=== PATIENT | male | born 1990 | race Two or more races ===

== ENCOUNTER 2024-08-21 08:11 | Inpatient (IN) | payer MEDICAID ==
[~2024-08-21] VITALS: Ht 185.4 cm; Wt 133.6 kg
[2024-08-21 08:22] VITALS: PULSE 76; RESP 20; O2SAT 100
--- NOTE | 2024-08-21 08:50 | ED.PDOC ---
GI ASSESSMENT HPI Comments 34-year-old male with no reported PMHx presents with a chief complaint of abdominal pain x onset 0400 with associated nausea and vomiting. Patient states that his pain is localized to his epigastric region, nonradiating, describes as cramping, and rates his pain a 10/10. Patient mentions that onset of abdomen pain began spontaneously at 0400 while he was sleeping. Patient mentions that his emesis is bilious and acidic. No other symptoms or modifying factors present at this time. Chief Complaint: Abdominal Pain Time Seen by MD: 08:34 Primary Care Provider: CHARLIE Pat Notes: Medications, Allergies Allergies: Coded Allergies: NO KNOWN ALLERGIES (Unverified , 12/16/14) Information Source: Patient Mode of Arrival: Ambulatory Timing: Hours Duration: Since onset Prehospital treatment: None Quality: Cramping Vomitus: Bilious Stool: Normal Severity: Moderate Recent: None Recent Hx of: None Pain Location: Epigastric Modifying Factors: Nothing Associated sign and symptoms: Nausea, Vomiting, Abdominal Pain Past Medical History PAST MEDICAL HISTORY: Denies Surgical History: Denies all surgeries Family History Family History: Unknown Social History Smoker: Non-Smoker Alcohol: Denies ETOH Use Drugs: Marijuana Lives In: Home Constitutional: denies: chills, diaphoresis, fatigue, fever, malaise, sweats, weakness, others EENTM: denies: blurred vision, double vision, ear bleeding, ear discharge, ear drainage, ear pain, ear ringing, eye pain, eye redness, hearing loss, mouth pain, mouth swelling, nasal discharge, nose bleeding, nose congestion, nose pain, photophobia, tearing, throat pain, throat swelling, voice changes, others Respiratory: denies: cough, hemoptysis, orthopnea, SOB at rest, shortness of breath, SOB with excertion, stridor, wheezing, others Cardiovascular: denies: chest pain, dizzy spells, diaphoresis, Dyspnea on exertion, edema, irregular heart beat, left arm pain, lightheadedness, palpitations, PND, syncope, others Gastrointestinal: reports: abdominal pain, nausea, vomiting; denies: abdomen distended, blood streaked bowels, constipated, diarrhea, dysphagia, difficulty swallowing, hematemesis, melena, poor appetite, poor fluid intake, rectal bleeding, rectal pain, others Genitourinary: denies: burning, dysuria, flank pain, frequency, hematuria, incontinence, penile discharge, penile sore, pain, testicle pain, testicle swelling, urgency, others Neurological: denies: dizziness, fainting, headache, left sided numbness, left sided weakness, numbness, paresthesia, pre-existing deficit, right sided numbness, right sided weakness, seizure, speech problems, tingling, tremors, weakness, others Musculoskeletal: denies: back pain, gout, joint pain, joint swelling, muscle pain, muscle stiffness, neck pain, others Integumetry: denies: bruises, change in color, change in hair/nails, dryness, laceration, lesions, lumps, rash, wounds, others Allergic/Immunocompromised: denies: Difficulty Healing, Frequent Infections, Hives, Itching, others Hematologic/Lymphatic: denies: anemia, blood clots, easy bleeding, easy bruising, swollen glands, others Endocrine: denies: excessive hunger, excessive sweating, excessive thirst, excessive urination, flushing, intolerance to cold, intolerance to heat, unexplained weight gain, unexplained weight loss, others Psychiatric: denies: anxiety, bipolar disorder, depression, hopeless, panic disorder, schizophrenia, sleepless, suicidal, others All Other Systems: Reviewed and Negative Physical Exam General Appearance: Moderate Distress, Obese HEENT: Normal ENT Inspection, Pharynx Normal, TMs Normal Neck: Full Range of Motion, Non-Tender, Normal, Normal Inspection Respiratory: Chest Non-Tender, Lungs Clear, No Accessory Muscle Use, No Respiratory Distress, Normal Breath Sounds Cardiovascular: No Edema, No JVD, No Murmur, No Gallop, Normal Peripheral Pulses, Regular Rate/Rhythm Breast Exam: Deferred Gastrointestinal: No Organomegaly, Non Tender, No Pulsatile Mass, Normal Bowel Sounds, Soft Genitalia: Deferred Pelvic: Deferred Rectal: Deferred Extremities: No calf tenderness, Normal capillary refill, Normal inspection, Normal range of motion, Non-tender, No pedal edema Musculoskeletal : Apperance: Normal 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 Was a procedure done?: No GI differential Dx Differential Diagnosis: Constipation, Diverticular disease, Esophagitis, Gastritis/PUD, Gastroenteritis X-Ray, Labs, Meds, VS Vital Signs Date Time Temp Pulse Resp B/P (MAP) Pulse Ox O2 Delivery O2 Flow Rate FiO2 08/21/24 08:22 76 20 100 Room Air* 0 21 08/21/24 08:21 98.1 76 20 172/117 (135) 100 98.1 08/21/24 08:20 98.0 72 24 164/98 (120) 100 Patient alert. Complaining of abdominal pain. Vitals stable. Answering questions. Establish intravenous access. Was given fluids. Was given morphine. Was given Zofran. His blood pressure is elevated. Possibly from pain. Explained to the patient. Continue to monitor. Time of 1ST Reevaluation: 09:04 Reevaluation 1ST: Unchanged Patient Education/Counseling: Diagnosis, Treatment, Prognosis Family Education/Counseling: Diagnosis, Treatment, Prognosis Departure 1 Departure Time of Disposition: 08:55 Impression: Primary Impression: Acute abdominal pain Additional Impression: Hypertensive urgency Disposition: ADMITTED INPATIENT Admit to: Med Surg Condition: Guarded Critical Care Note Critical Care Time?: Yes (45 min-critical care time only) Critical care comment: Blood pressure elevated. Stability Stability form required: No Heart Score Heart Score: Heart Score Response (Comments) Value History N/A 0 EKG N/A 0 Age N/A 0 Risk Factors N/A 0 Troponin N/A 0 Total 0 I personally scribed for ARNIE DANGELO MD ([email or web address]) on 08/21/24 at 08:50. Electronically submitted by Sly Dubose ([email or web address]). ARNIE DANGELO MD Aug 21, 2024 08:50
[2024-08-21] MEDS: SODIUM CHLORIDE 0.9% 1,000 ML IV ONE (08:58)
[2024-08-21] MEDS: ONDANSETRON HCL 4 MG/2 ML VIAL IV ONE (09:03)
[2024-08-21] MEDS: MORPHINE SULFATE 4 MG/ML SYR/VIAL IV ONE (09:04)
[2024-08-21 09:25] LABS: Basophils # (auto) 0 10 ^3/uL (0-0.2); Basophils % (auto) 0.4 % (0.0-2.0); Eosinophils # (auto) 0.1 10 ^3/uL (0-0.8); Eosinophils % (auto) 0.7 % (0.0-7.0); Hematocrit 50.1 % (41.0-53.0); Hemoglobin 16.7 g/dL (13.5-17.5); Lymphocytes # (auto) 1.4 10 ^3/uL (0.4-5.4); Lymphocytes % (auto) 14.1 % (10.0-50.0); Mean Corpuscular Hemoglobin 29.5 pg (28.0-32.0); Mean Corpuscular Hgb Conc. 33.4 g/dL (32.0-36.0); Mean Corpuscular Volume 88.2 fL (80.0-100.0); Monocytes # (auto) 0.5 10 ^3/uL (0-1.3); Monocytes % (auto) 4.9 % (0.0-12.0); Neutrophils % (auto) 79.9 % (37.0-80.0); Nucleated Red Blood Cells % 0.1 %; Platelet Count (auto) 286 10^3/uL (140-450); Red Blood Cells 5.68 10^6/uL (4.5-5.90); Red Cell Distribution Width 12.8 % (11.8-14.3)
[2024-08-21 09:34] LABS: Chloride 104 mmol/L (98-107); Potassium 3.7 mmol/L (3.5-5.1); Sodium 139 mmol/L (136-145)
[2024-08-21 09:35] LABS: Anion Gap 10 (5-15); Calcium 9.7 mg/dL (8.7-10.4); Carbon Dioxide 25 mmol/L (20-31)
[2024-08-21 09:40] LABS: BUN/Creatinine Ratio 10.7 (10.0-20.0); Blood Urea Nitrogen 11 mg/dL (9-23)
[2024-08-21 09:42] LABS: Bilirubin, Total 0.5 mg/dL (0.2-1.0)
[2024-08-21 09:44] LABS: Glucose 135 mg/dL (74-106)
[2024-08-21] MEDS ORDERED: ONDANSETRON HCL 4 MG/2 ML VIAL IV PRN (09:45)
[2024-08-21] MEDS: KETOROLAC TROMETH 30 MG/ML 1ML VIAL IV ONE (10:03)
--- NOTE | 2024-08-21 10:04 | DVHHP2 ---
History of Present Illness Reason for Visit: Abdominal pain History of Present Illness Juancho Santa is a 34-year-old male with no past medical history who presents to the ED with epigastric abdominal pain x2 2 days. Patient reports that the pain is 10/10 nonradiating feels like it is "blowing up" and intermittent nature. Patient also complains of nausea and vomiting with yellowish contents. Patient reports that he takes sildenafil once and that was it. He also reports that he smokes marijuana, does not smoke cigarettes, denies ETOH use. Patient denies chest pain, shortness of breath, fever, chills, recent ingestion of spoiled food, trauma or recent injury, diarrhea, lightheadedness, and weakness. Past Surgical History: None Family History: None Smoke: No ALCOHOL: none Drugs: Marijuana Lives: with Family Domestic Violence: Neg Review of Systems Constitutional: No: Fever, Chills, Sweats, Weakness, Malaise, Other Eyes: No: Pain, Vision change, Conjunctivae inflammation, Eyelid inflammation, Other, Redness ENT: No: Ear pain, Ear discharge, Nose pain, Nose discharge, Nose congestion, Mouth pain, Mouth swelling, Throat pain, Throat swelling, Other Respiratory: No: Cough, Dry, Shortness of breath, SOB with excertion, Wheezing, Hemoptysis, Pleuritic Pain, Sputum, Wheezing, Other Cardiovascular: No: Chest Pain, Palpitations, Orthopnea, Paroxysmal Noc. Dyspnea, Edema, Lt Headedness, Other Gastrointestinal: Nausea, Vomiting, Abdominal Pain; No: Diarrhea, Constipation, Melena, Hematochezia, Other Genitourinary: No Dysuria, No Frequency, No Incontinence, No Hematuria, No Retention, No Other Musculoskeletal: No: other, neck pain, shoulder pain, arm pain, back pain, hand pain, leg pain, foot pain Skin: No: Rash, Lesions, Jaundice, Bruising, Other Neurological: No: Weakness, Numbness, Incoordination, Change in speech, Confusion, Seizures, Other Allergies: Coded Allergies: NO KNOWN ALLERGIES (Unverified , 12/16/14) Exam Vital Signs Vital Signs Date Time Temp Pulse Resp B/P (MAP) Pulse Ox O2 Delivery O2 Flow Rate FiO2 08/21/24 09:25 63 18 189/93 08/21/24 08:22 100 Room Air* 0 21 08/21/24 08:21 98.1 98.1 General Appearance: Alert, Oriented X3, Cooperative, mild distress HEENT: Atraumatic, PERRLA, EOMI, Mucous membr. moist/pink Respiratory: Clear to auscultation, Normal air movement Cardiovascular: Normal S1, Normal S2, No murmurs Abdominal: Soft, No hepatospenomegaly, No masses Extremities: No clubbing, No cyanosis, No edema, Normal pulses, No tenderness/swelling Skin: No rashes, No breakdown, No significant lesion Neuro: Normal gait, Normal speech, Strength at 5/5 X4 ext, Normal tone, Sensation intact Psych/Mental Status: Mental status NL, Mood NL Labs/Xrays Labs Test 08/21/24 09:14 Range/Units White Blood Count 10.0 4.4-10.8 10^3/uL Red Blood Count 5.68 4.5-5.90 10^6/uL Hemoglobin 16.7 13.5-17.5 g/dL Hematocrit 50.1 41.0-53.0 % Mean Corpuscular Volume 88.2 80.0-100.0 fL Mean Corpuscular Hemoglobin 29.5 28.0-32.0 pg Mean Corpuscular Hemoglobin Concent 33.4 32.0-36.0 g/dL Red Cell Distribution Width 12.8 11.8-14.3 % Platelet Count 286 140-450 10^3/uL Mean Platelet Volume 8.3 6.9-10.8 fL Neutrophils (%) (Auto) 79.9 37.0-80.0 % Lymphocytes (%) (Auto) 14.1 10.0-50.0 % Monocytes (%) (Auto) 4.9 0.0-12.0 % Eosinophils (%) (Auto) 0.7 0.0-7.0 % Basophils (%) (Auto) 0.4 0.0-2.0 % Neutrophils # (Auto) 8.0 1.6-8.6 10 ^3/uL Lymphocytes # (Auto) 1.4 0.4-5.4 10 ^3/uL Monocytes # (Auto) 0.5 0-1.3 10 ^3/uL Eosinophils # (Auto) 0.1 0-0.8 10 ^3/uL Basophils # (Auto) 0 0-0.2 10 ^3/uL Nucleated Red Blood Cells 0.1 % Sodium Level 139 136-145 mmol/L Potassium Level 3.7 3.5-5.1 mmol/L Chloride Level 104 98-107 mmol/L Carbon Dioxide Level 25 20-31 mmol/L Anion Gap 10 5-15 Blood Urea Nitrogen 11 9-23 mg/dL Creatinine 1.03 0.700-1.30 mg/dL Glomerular Filtration Rate Calc 98 >90 mL/min BUN/Creatinine Ratio 10.7 10.0-20.0 Serum Glucose 135 H 74-106 mg/dL Calcium Level 9.7 8.7-10.4 mg/dL Total Bilirubin 0.5 0.2-1.0 mg/dL Exam: CT CT AB PEL WO CON-NO ORAL OR IV History: stone Comparison Study: None Technique: Multidetector spiral CT of the abdomen and pelvis was performed from lung bases to pubic symphysis. Imaging was performed without IV contrast. Axial, coronal and sagittal multiplanar reformats were obtained from the axial data set by the technologist. Radiation dose : Abdomen/Pelvis: CTDIvol 26.72 mGy, DLP 1669.68 mGy*cm. Findings: Evaluation of solid organs is limited due to lack of intravenous contrast use. Lung Bases: No acute or significant lung base finding. Normal heart size. No pleural or pericardial effusion. Liver: The liver is normal in size. No focal lesions. Gallbladder and biliary Tree: Unremarkable Spleen: Unremarkable Pancreas: The pancreas is grossly normal in appearance. Adrenal Glands: Unremarkable Kidneys: Kidneys are grossly normal without calculi or hydronephrosis. Bladder: Grossly unremarkable for degree of distention. Bowel: The stomach is grossly normal in appearance. Small bowel and colon are normal in caliber and distribution. Normal appendix is visualized in the right lower quadrant without findings of appendicitis. Ascites: Absent Lymphadenopathy: No mesenteric, retroperitoneal or periportal lymphadenopathy. Abdominal wall and Mesentery: Unremarkable. Vasculature: The visualized abdominal aorta is normal in size and caliber. Evaluation of abdominal and pelvic vessels is limited due to lack of intravenous contrast. Pelvic Organs: Small amount of fluid in the left inguinal canal. Musculoskeletal: No aggressive focal bony lesions, acute fractures or dislocation. IMPRESSION: 1. No acute abdominal or pelvic findings. No hydronephrosis or nephrolithiasis. Small amount of fluid in the left inguinal canal. Consider scrotal ultrasound. ULTRASOUND OF SCROTUM AND CONTENTS. INDICATION: pain COMPARISON: None TECHNIQUE: Multiple real-time grayscale sonographic and color and duplex Doppler images of the scrotum and its contents were obtained. FINDINGS: The right testicle measures 2.8 x 2.0 x 3.9 cm. The left testicle measures 3.3 x 1.9 x 3.0 cm. Both testicles demonstrate homogeneous echotexture without evidence of focal lesions. The right epididymal head measures 0.9 cm. The left epididymal head measures 1.2 cm. There is a left epididymal cyst measuring 0.7 cm. Subsequent color and duplex Doppler interrogation of the testes demonstrated symmetric normal vascular flow to both testicles. No focal areas of hyperemia were seen. Prominent fat is visualized in the region of palpable abnormality in the soft tissues of the right testicle measuring 3.7 cm. IMPRESSION: 1. No evidence of torsion, epididymitis, and/or orchitis. Prominent fat is visualized in the region of palpable abnormality in the soft tissues of the right testicle measuring 3.7 cm. Assessment/Plan Assessment/Plan Assessment/Plan: Intractable abdominal pain with nausea and vomiting Small amount of fluid in the left inguinal canal r/o hydrocele scrotal US Labs UA NS 1 L given ED Antiemetics Pain management T bili UA CT abdomen and pelvis Lipase UDS ETOH A.m. labs STI workup (Chlamydia/GC, HIV, RPR) IV Abx- Ceftriaxone + Doxycycline Substance abuse Counseled patient on cessation of substance abuse Obesity Counseled patient on lifestyle modifications, diet, and exercise FEN/PPX NPO IV fluids DVT prophylaxis not indicated patient ambulating PUD prophylaxis -Protonix Admit to med surg Patient states he doesn't take any home medications Discussed plan of care with patient and nurse Plan discussed with: Patient My Orders Orders - [facility] [employer] Procedure Category Date Status Time Ct Ab Pel Wo Con-No CT 08/21/24 Transmitted Oral Or Iv 09:43 Admit ADMIT 08/21/24 Verified 09:43 Allergies TRACI 08/21/24 Verified 09:43 Code Status CODE 08/21/24 Verified 09:43 0.9% Ns 1000 Ml PHA 08/21/24 Verified 09:45 Hydrocodone-Acet PHA 08/21/24 Verified 5/325mg Tab ([place] 09:45 Ondansetron Hcl PHA 08/21/24 Verified (Zofran) 09:45 Complete Blood Count LAB 08/22/24 Verified 04:00 Comprehensive LAB 08/22/24 Verified Metabolic Panel 04:00 Npo (Nothing By DIET 08/21/24 Verified Mouth) Diet Lunch Acetaminophen Tablet PHA 08/21/24 Verified (Tylenol Tablet) 09:45 Morphine Sulfate PHA 08/21/24 Verified Injection 09:45 Date of Service: Aug 21, 2024 Billing Provider: XU PUGH Common Visit Codes: [id number] INP/OBS CARE (HIGH) XU PUGH Aug 21, 2024 10:04
[2024-08-21 10:47] LABS: Blood Alcohol < 3.0 mg/dL (<10)
--- NOTE | 2024-08-21 11:03 | DVH ---
Exam: CT CT AB PEL WO CON-NO ORAL OR IV History: stone Comparison Study: None Technique: Multidetector spiral CT of the abdomen and pelvis was performed from lung bases to pubic symphysis. Imaging was performed without IV contrast. Axial, coronal and sagittal multiplanar reform ats were obtained from the axial data set by the technologist. Radiation dose : Abdomen/Pelvis: CTDIvol 26.72 mGy, DLP 1669.68 mGy*cm. Findings: Evaluation of solid organs is limited due to lack of intravenous contrast use. Lung Bases: No acute or significant lung base finding. Normal heart size. No pleural or pericardial effusion. Liver: The liver is normal in size. No focal lesions. Gallbladder and biliary Tree: Unremarkable Spleen: Unremarkable Pancreas: The pancreas is grossly normal in appearance. Adrenal Glands: Unremarkable Kidneys: Kidneys are grossly normal without calculi or hydronephrosis. Bladder: Grossly unremarkable for degree of distention. Bowel: The stomach is grossly normal in appearance. Small bowel and colon are normal in caliber and d istribution. Normal appendix is visualized in the right lower quadrant without findings of appendicit is. Ascites: Absent Lymphadenopathy: No mesenteric, retroperitoneal or periportal lymphadenopathy. Abdominal wall and Mesentery: Unremarkable. Vasculature: The visualized abdominal aorta is normal in size and caliber. Evaluation of abdominal a nd pelvic vessels is limited due to lack of intravenous contrast. Pelvic Organs: Small amount of fluid in the left inguinal canal. Musculoskeletal: No aggressive focal bony lesions, acute fractures or dislocation. IMPRESSION: 1. No acute abdominal or pelvic findings. No hydronephrosis or nephrolithiasis. Small amount of flui d in the left inguinal canal. Consider scrotal ultrasound. Radiation optimization: All CT scans at this facility use at least one of these dose optimization swetha hniques: Automated exposure control mA and/or kV adjustment per patient size (includes targeted exams where dose is matched to clinical indication) or iterative reconstruction. HS:Y
[2024-08-21 11:13] LABS: Lipase 37 U/L (12-53)
[2024-08-21] MEDS: SODIUM CHLORIDE 0.9% 1,000 ML IV SCH (11:17)
[2024-08-21] MEDS: cefTRIAXone 1GM/50ML D5W 50 ML IV ONE (12:00)
[2024-08-21 12:31] LABS: Urine Bacteria None Seen /hpf (None Seen)
[2024-08-21 12:53] LABS: Urine Amorphous Crystal FEW /hpf (None Seen); Urine Blood Negative /uL (Negative); Urine Clarity Turbid (Clear); Urine Color Yellow (Yellow); Urine Mucus FEW (None Seen); Urine Protein, UAD TRACE (Negative); Urine Specific Gravity 1.031 (1.001-1.035); Urine Squamous Epithelial Cell FEW /hpf (<5); Urine Urobilinogen Normal (Negative); Urine WBC < 1 /HPF (0-3)
[2024-08-21 13:03] LABS: Cocaine Screen, Urine Neg (NEGATIVE)
[2024-08-21 13:05] LABS: Amphetamine Screen, Urine Neg (NEGATIVE); Barbiturate Scree,Urine Neg (NEGATIVE); Benzodiazephine Screen, Urine Neg (NEGATIVE); Cannabinoid Screen, Urine Pos (NEGATIVE); Opiate Scree,Urine Pos (NEGATIVE); Phencyclidine Screen, Urine Neg (NEGATIVE)
--- NOTE | 2024-08-21 13:06 | DVH ---
ULTRASOUND OF SCROTUM AND CONTENTS. INDICATION: pain COMPARISON: None TECHNIQUE: Multiple real-time grayscale sonographic and color and duplex Doppler images of the scrotu m and its contents were obtained. FINDINGS: The right testicle measures 2.8 x 2.0 x 3.9 cm. The left testicle measures 3.3 x 1.9 x 3.0 cm. Both testicles demonstrate homogeneous echotexture without evidence of focal lesions. The right epididymal head measures 0.9 cm. The left epididymal head measures 1.2 cm. There is a left epididymal cyst measuring 0.7 cm. Subsequent color and duplex Doppler interrogation of the testes demonstrated symmetric normal vascula r flow to both testicles. No focal areas of hyperemia were seen. Prominent fat is visualized in the region of palpable abnormality in the soft tissues of the right te sticle measuring 3.7 cm. IMPRESSION: 1. No evidence of torsion, epididymitis, and/or orchitis. Prominent fat is visualized in the region o f palpable abnormality in the soft tissues of the right testicle measuring 3.7 cm.
[2024-08-21] MEDS: DOXYCYCLINE 100MG/100ML 100 ML IV ONE (13:15)
[2024-08-21 21:30] VITALS: BP 149/74; PULSE 95; RESP 18; TEMP 98.5; O2SAT 97
[2024-08-21 22:40] VITALS: BP 149/74; PULSE 95; RESP 18; TEMP 98.5; O2SAT 97
[2024-08-21] MEDS: DOXYCYCLINE 100MG/100ML 100 ML IV SCH (23:51)
[2024-08-22] VITALS (9 sets, daily range): BP systolic 122–158; BP diastolic 71–85; PULSE 79–90; RESP 18–20; TEMP 98.3–101; O2SAT 94–98
[2024-08-22] MEDS: HYDROcodone-ACET 5/325MG TAB PO PRN (01:02)
[2024-08-22 03:51] LABS: Basophils # (auto) 0.1 10 ^3/uL (0-0.2); Basophils % (auto) 0.4 % (0.0-2.0); Eosinophils # (auto) 0.1 10 ^3/uL (0-0.8); Eosinophils % (auto) 0.4 % (0.0-7.0); Hematocrit 46.4 % (41.0-53.0); Hemoglobin 15.5 g/dL (13.5-17.5); Lymphocytes # (auto) 2.2 10 ^3/uL (0.4-5.4); Lymphocytes % (auto) 16.1 % (10.0-50.0); Mean Corpuscular Hemoglobin 29.4 pg (28.0-32.0); Mean Corpuscular Hgb Conc. 33.4 g/dL (32.0-36.0); Mean Corpuscular Volume 88.1 fL (80.0-100.0); Monocytes # (auto) 1.4 10 ^3/uL (0-1.3); Monocytes % (auto) 10.4 % (0.0-12.0); Neutrophils # (auto) 9.8 10 ^3/uL (1.6-8.6); Neutrophils % (auto) 72.7 % (37.0-80.0); Nucleated Red Blood Cells % 0.1 %; Platelet Count (auto) 275 10^3/uL (140-450); Red Blood Cells 5.27 10^6/uL (4.5-5.90); Red Cell Distribution Width 12.8 % (11.8-14.3); White Blood Cell 13.4 10^3/uL (4.4-10.8)
[2024-08-22 04:19] LABS: Alanine Aminotransferase 37 U/L (7-40); Albumin 4.5 g/dL (3.2-4.8); Alkaline Phosphatase 79 U/L (46-116); Anion Gap 11 (5-15); Aspartate Aminotransferase 20 U/L (13-40); BUN/Creatinine Ratio 11.1 (10.0-20.0); Blood Urea Nitrogen 12 mg/dL (9-23); Calcium 9.2 mg/dL (8.7-10.4); Carbon Dioxide 23 mmol/L (20-31); Chloride 103 mmol/L (98-107); Potassium 3.7 mmol/L (3.5-5.1); Sodium 137 mmol/L (136-145)
[2024-08-22 04:20] LABS: Bilirubin, Total 1.1 mg/dL (0.2-1.0); Total Protein 7.1 g/dL (5.7-8.2)
[2024-08-22 04:30] LABS: Glucose 120 mg/dL (74-106)
[2024-08-22] MEDS: DOXYCYCLINE 100MG/100ML 100 ML IV SCH (04:46)
[2024-08-22] MEDS: PANTOPRAZOLE 40 MG/10 ML VIAL INJ IV SCH (08:46)
[2024-08-22] MEDS: cefTRIAXone 1GM/50ML D5W 50 ML IV SCH (08:53)
--- NOTE | 2024-08-22 14:49 | DVHPN2 ---
Subjective The patient is seen and examined at bedside. The patient complained of severe abdominal pain with nausea but no vomiting. The patient also said that his scrotum is hurting Reviewed: Care Plan, H&P, Labs, Medications, Previous Orders, Radiology Changes from previous H/P or p: No Changes Eyes: No Pain, No Vision change, No Conjunctivae inflammation, No Eyelid inflammation, No Other, No Redness ENT: No Ear pain, No Ear discharge, No Nose pain, No Nose discharge, No Nose congestion, No Mouth pain, No Mouth swelling, No Throat pain, No Throat swelling, No Other Cardiovascular: No Chest Pain, No Palpitations, No Orthopnea, No Paroxysmal Noc. Dyspnea, No Edema, No Lt Headedness, No Other Respiratory: No Cough, No Dry, No Shortness of breath, No SOB with excertion, No Wheezing, No Hemoptysis, No Pleuritic Pain, No Sputum, No Other Gastrointestinal: Nausea, Vomiting, Abdominal Pain; No Diarrhea, No Constipation, No Melena, No Hematochezia, No Other Genitourinary: No Dysuria, No Frequency, No Incontinence, No Hematuria, No Retention, No Other Musculoskeletal: No other, No neck pain, No shoulder pain, No arm pain, No back pain, No hand pain, No leg pain, No foot pain Skin: No Rash, No Lesions, No Jaundice, No Bruising, No Other Objective Vitals Vital Signs Date Time Temp Pulse Resp B/P (MAP) Pulse Ox O2 Delivery O2 Flow Rate FiO2 08/22/24 13:19 101.0 82 20 158/77 (104) 97 101.0 08/22/24 00:49 Room Air* 0 21 Intake/Output Intake and Output 08/22/24 07:00 Intake Total 2000 ml Balance 2000 ml Intake IV Total 2000 ml General Appearance: Alert, Oriented X3, Cooperative, No acute distress HEENT: Atraumatic, PERRLA, EOMI, Mucous membr. moist/pink Neck: Supple Lungs: Clear to auscultation, Normal air movement Cardiovascular: Regular rate, Normal S1, Normal S2, No murmurs, Gallops, Rubs Abdomen: Normal bowel sounds, Soft, No tenderness Genitourinary: Tenderness (Scrotum) Neuro: Cranial nerves 3-12 NL Psych/Mental Status: Mental status NL Medications Current Medications Medications Dose Ordered Sig/Graham Route Start Time Stop Time Status Last Admin Dose Admin Sodium Chloride 1,000 ml @ 100 mls/hr Q10H IV 08/21/24 09:45 08/21/24 23:50 100 MLS/HR Acetaminophen/ Hydrocodone Bitart 1 tab Q4HP PRN PO 08/21/24 09:45 08/22/24 12:56 1 TAB Ondansetron HCl 4 mg Q4HP PRN IV 08/21/24 09:45 Acetaminophen 650 mg Q6HP PRN PO 08/21/24 09:45 Morphine Sulfate 2 mg Q4HPRN PRN IV 08/21/24 09:45 Pantoprazole Sodium 40 mg DAILY IV 08/22/24 10:00 08/22/24 08:46 40 MG Ceftriaxone Sodium 50 ml @ 100 mls/hr DAILY@09 IV 08/22/24 09:00 08/22/24 08:53 100 MLS/HR Doxycycline Hyclate 100 ml @ 50 mls/hr Q12H IV 08/22/24 05:00 08/22/24 04:46 50 MLS/HR Laboratory Results Laboratory Tests 08/22/24 03:21 Chemistry Test 08/22/24 03:21 Albumin 4.5 g/dL (3.2-4.8) Calcium Level 9.2 mg/dL (8.7-10.4) Total Protein 7.1 g/dL (5.7-8.2) LFT Test 08/22/24 03:21 Alanine Aminotransferase (ALT) 37 U/L (7-40) Alkaline Phosphatase 79 U/L (46-116) Aspartate Amino Transferase (AST) 20 U/L (13-40) Total Bilirubin 1.1 mg/dL (0.2-1.0) H Urinalysis Test 08/21/24 12:30 Urine Color Yellow (Yellow) Urine Clarity Turbid (Clear) H Urine pH 7.0 (5.0-9.0) Urine Specific [place] 1.031 (1.001-1.035) Urine Protein Trace (Negative) H Urine Ketones Trace (Negative) Urine Blood Negative /uL (Negative) Urine Nitrite Negative (Negative) Urine Bilirubin Negative (Negative) Urine Urobilinogen Normal mg/dL (Negative) Urine Leukocyte Esterase Negative /uL (Negative) Urine RBC 8 /hpf (0 - 3) Urine Microscopic WBC < 1 /HPF (0-3) Urine Squamous Epithelial Cells Few /hpf (<5) Urine Amorphous Crystals Few /hpf (None Seen) Urine Bacteria None seen /hpf (None Seen) Urine Mucus Few (None Seen) Urine Glucose Normal mg/dL (Normal) Labs and/or images reviewed: Labs reviewed by me Assessment/Plan Assessment/Plan Intractable abdominal pain with nausea and vomiting Small amount of fluid in the left inguinal canal r/o hydrocele Palpable abnormality in the soft tissues of the right testicle measuring 3.7 cm. Substance abuse Obesity Continuing current management. Continuing with Protonix. Continuing with pain medication. Continuing with Zofran. Urology consulted for abnormal area in the right testis to rule out testicular cancer Advised to stop using drugs more than 15 minutes GI consulted Plan discussed with: Patient Date of Service: Aug 22, 2024 Billing Provider: YOAN JONES MD Common Visit Codes: [id number] INP/OBS CARE(HIGH) YOAN JONES MD Aug 22, 2024 14:49
[2024-08-22] MEDS: ACETAMINOPHEN 325 MG TAB PO PRN (18:18)
[2024-08-23 01:05] VITALS: BP 113/61; PULSE 81; RESP 17; TEMP 99.5; O2SAT 98
[2024-08-23 05:10] VITALS: BP 146/78; PULSE 80; RESP 18; TEMP 99.1; O2SAT 96
[2024-08-23 06:06] LABS: Chlamydia Trachomatis, NAA Negative (Negative); Neisseria gonorrhoeae, NAA Negative (Negative)
[2024-08-23] MEDS: MORPHINE SULFATE INJ 2 MG/ml SYRG IV PRN (08:16)
[2024-08-23 09:00] VITALS: BP 132/61; PULSE 91; RESP 17; TEMP 97.7; O2SAT 97
[2024-08-23 13:00] VITALS: BP 117/76; PULSE 94; RESP 16; TEMP 98.4; O2SAT 100
--- NOTE | 2024-08-23 14:35 | DVHINCON2 ---
Date of service: Aug 23, 2024 Referring Physician hospitalist Reason for Consultation testicular mass History of Present Illness History Source: Patient, RN Notes, MD Notes Exam Limitations: No limitations HPI 34 yo obese male without medical history presents for c/o of mid epigastric pain with nausea and vomiting. This has been bothering him for weeks and he states nothing has been done here to address it. CT was unremarkable for findings. Scrotal US showed a fatty 3.7 cm lesion in the right testicle however physical exam was unremarkable. He does have a fatty collection of the right inner thigh that is not new and is not bothering him. He admits to smoking marijuana and eating a poor diet including a lot of soda. Tumor markers were ordered at patients request as he has many family members with multiple types of cancers. Past Medical History Cardiac: No pertinent Hx Pulmonary: No pertinent Hx Central Nervous System: No pertinent Hx GI: No pertinent Hx Hemotology/Oncology: No pertinent Hx Hepatobiliary: No pertinent Hx Psychiatric: No pertinent Hx Musculoskeletal: No pertinent Hx Rheumotologic: No pertinent Hx Infectious Disease: No peritnent Hx ENT: No pertinent Hx Renal/: No pertinent Hx Endocrine: No pertinent Hx Dermatology: No pertinent Hx Patient Family History: Patient reports no known family medical history. Smoker: No Hx (Negative) Alocohol: None Drugs: Marijuana Domestic Violence: Neg Review of Systems Gastrointestinal: Nausea, Abdominal Pain H&P Exam Vital Signs Vital Signs Date Time Temp Pulse Resp B/P (MAP) Pulse Ox O2 Delivery O2 Flow Rate FiO2 08/23/24 09:00 97.7 91 17 132/61 (84) 97 97.7 08/23/24 07:48 Room Air* 0 21 21 General Appeara: Well developed, Well nourished, Normal Appearance, Obese Abdominal Exam: Normal bowel sounds, Soft, No tenderness, No hepatospenomegaly, No masses Rectal Exam: Deferred Back Exam: Normal inspection Male Genital Exam: Normal genitalia Neuro/Mental St: Alert, Oriented Appearance: Appropriate appearance, Appropriate insight Eye contact/ Speech: Cooperative, Good eye contact, Normal speech Skin Exam: Normal inspection, Normal color, Warm/dry Lymphatic: Normal inspection Labs/Xrays [facility] [id number] [place] [id number] Ph: [phone] DIAGNOSTIC IMAGING Diagnostic Imaging Report : [id number] Signed PATIENT: LYNN CASTRO ACCT: [id number] UNIT: [id number] : 1990 LOC: OVERFLOW ROOM / BED: 1025-ER / A AGE / SEX: 34 / M ADM STATUS: ADM IN SERVICE 0957 ORDERING PHYSICIAN: ARNIE DANGELO MD PROCEDURE(s): ABPL - CT AB PEL WO CON-NO ORAL OR IV REASON: stone ORDER NUMBER(s): [id number], ACCESSION NUMBER(s): [id number] Exam: CT CT AB PEL WO CON-NO ORAL OR IV History: stone Comparison Study: None Technique: Multidetector spiral CT of the abdomen and pelvis was performed from lung bases to pubic symphysis. Imaging was performed without IV contrast. Axial, coronal and sagittal multiplanar reformats were obtained from the axial data set by the technologist. Radiation dose : Abdomen/Pelvis: CTDIvol 26.72 mGy, DLP 1669.68 mGy*cm. Findings: Evaluation of solid organs is limited due to lack of intravenous contrast use. Lung Bases: No acute or significant lung base finding. Normal heart size. No pleural or pericardial effusion. Liver: The liver is normal in size. No focal lesions. Gallbladder and biliary Tree: Unremarkable Spleen: Unremarkable Pancreas: The pancreas is grossly normal in appearance. Adrenal Glands: Unremarkable Kidneys: Kidneys are grossly normal without calculi or hydronephrosis. Bladder: Grossly unremarkable for degree of distention. Bowel: The stomach is grossly normal in appearance. Small bowel and colon are normal in caliber and distribution. Normal appendix is visualized in the right lower quadrant without findings of appendicitis. Ascites: Absent Lymphadenopathy: No mesenteric, retroperitoneal or periportal lymphadenopathy. Abdominal wall and Mesentery: Unremarkable. Vasculature: The visualized abdominal aorta is normal in size and caliber. Evaluation of abdominal and pelvic vessels is limited due to lack of intravenous contrast. Pelvic Organs: Small amount of fluid in the left inguinal canal. Musculoskeletal: No aggressive focal bony lesions, acute fractures or dislocation. IMPRESSION: 1. No acute abdominal or pelvic findings. No hydronephrosis or nephrolithiasis. Small amount of fluid in the left inguinal canal. Consider scrotal ultrasound. Radiation optimization: All CT scans at this facility use at least one of these dose optimization techniques: Automated exposure control mA and/or kV adjustment per patient size (includes targeted exams where dose is matched to clinical indication) or iterative reconstruction. HS:Y ATED BY: TOÑITO DICKINSON MD DICTATED DATE/TIME: 08/21/24 110 SIGNED BY: TOÑITO DICKINSON MD SIGNED DATE/TIME: 08/21/24 110 CC: [place] [id number] Ph: [phone] DIAGNOSTIC IMAGING Diagnostic Imaging Report : [id number] Signed PATIENT: LYNN CASTRO ACCT: [id number] UNIT: [id number] : 1990 [facility]GE / SEX: 34 / M ADM STATUS: ADM IN SERVICE 1042 ORDERING PHYSICIAN: UX PUGH PROCEDURE(s): TESUS - TESTICULAR ULTRASOUND REASON: pain ORDER NUMBER(s): [id number], ACCESSION NUMBER(s): [id number] ULTRASOUND OF SCROTUM AND CONTENTS. INDICATION: pain COMPARISON: None TECHNIQUE: Multiple real-time grayscale sonographic and color and duplex Doppler images of the scrotum and its contents were obtained. FINDINGS: The right testicle measures 2.8 x 2.0 x 3.9 cm. The left testicle measures 3.3 x 1.9 x 3.0 cm. Both testicles demonstrate homogeneous echotexture without evidence of focal lesions. The right epididymal head measures 0.9 cm. The left epididymal head measures 1.2 cm. There is a left epididymal cyst measuring 0.7 cm. Subsequent color and duplex Doppler interrogation of the testes demonstrated symmetric normal vascular flow to both testicles. No focal areas of hyperemia were seen. Prominent fat is visualized in the region of palpable abnormality in the soft tissues of the right testicle measuring 3.7 cm. IMPRESSION: 1. No evidence of torsion, epididymitis, and/or orchitis. Prominent fat is visualized in the region of palpable abnormality in the soft tissues of the right testicle measuring 3.7 cm. ATED BY: SHAYAN BLEDSOE MD DICTATED DATE/TIME: 08/21/24 1306 SIGNED BY: SHAYAN BLEDSOE MD SIGNED DATE/TIME: 08/21/24 1306 CC: Labs Test 08/22/24 03:21 08/21/24 12:30 08/21/24 09:14 Range/Units White Blood Count 13.4 #H 4.4-10.8 10^3/uL Red Blood Count 5.27 4.5-5.90 10^6/uL Hemoglobin 15.5 13.5-17.5 g/dL Hematocrit 46.4 41.0-53.0 % Mean Corpuscular Volume 88.1 80.0-100.0 fL Mean Corpuscular Hemoglobin 29.4 28.0-32.0 pg Mean Corpuscular Hemoglobin Concent 33.4 32.0-36.0 g/dL Red Cell Distribution Width 12.8 11.8-14.3 % Platelet Count 275 140-450 10^3/uL Mean Platelet Volume 8.2 6.9-10.8 fL Neutrophils (%) (Auto) 72.7 37.0-80.0 % Lymphocytes (%) (Auto) 16.1 10.0-50.0 % Monocytes (%) (Auto) 10.4 0.0-12.0 % Eosinophils (%) (Auto) 0.4 0.0-7.0 % Basophils (%) (Auto) 0.4 0.0-2.0 % Neutrophils # (Auto) 9.8 H 1.6-8.6 10 ^3/uL Lymphocytes # (Auto) 2.2 0.4-5.4 10 ^3/uL Monocytes # (Auto) 1.4 H 0-1.3 10 ^3/uL Eosinophils # (Auto) 0.1 0-0.8 10 ^3/uL Basophils # (Auto) 0.1 0-0.2 10 ^3/uL Nucleated Red Blood Cells 0.1 % Sodium Level 137 136-145 mmol/L Potassium Level 3.7 3.5-5.1 mmol/L Chloride Level 103 98-107 mmol/L Carbon Dioxide Level 23 20-31 mmol/L Anion Gap 11 5-15 Blood Urea Nitrogen 12 9-23 mg/dL Creatinine 1.08 0.700-1.30 mg/dL Glomerular Filtration Rate Calc 92 >90 mL/min BUN/Creatinine Ratio 11.1 10.0-20.0 Serum Glucose 120 H 74-106 mg/dL Calcium Level 9.2 8.7-10.4 mg/dL Total Bilirubin 1.1 H 0.2-1.0 mg/dL Aspartate Amino Transferase (AST) 20 13-40 U/L Alanine Aminotransferase (ALT) 37 7-40 U/L Alkaline Phosphatase 79 46-116 U/L Total Protein 7.1 5.7-8.2 g/dL Albumin 4.5 3.2-4.8 g/dL Urine Color Yellow Yellow Urine Clarity Turbid H Clear Urine pH 7.0 5.0-9.0 Urine Specific [place] 1.031 1.001-1.035 Urine Protein Trace H Negative Urine Ketones Trace Negative Urine Blood Negative Negative /uL Urine Nitrite Negative Negative Urine Bilirubin Negative Negative Urine Urobilinogen Normal Negative mg/dL Urine Leukocyte Esterase Negative Negative /uL Urine RBC 8 0 - 3 /hpf Urine Microscopic WBC < 1 0-3 /HPF Urine Squamous Epithelial Cells Few <5 /hpf Urine Amorphous Crystals Few None Seen /hpf Urine Bacteria None seen None Seen /hpf Urine Mucus Few None Seen Urine Glucose Normal Normal mg/dL Urine Opiates Screen Pos NEGATIVE Urine Fentanyl Screen Neg NEGATIVE Urine Barbiturates Screen Neg NEGATIVE Urine Phencyclidine Screen Neg NEGATIVE Urine Amphetamines Screen Neg NEGATIVE Urine Benzodiazepines Screen Neg NEGATIVE Urine Cocaine Screen Neg NEGATIVE Urine Cannabinoids Screen Pos NEGATIVE Chlamydia trachomatis (SONALI) Negative Negative Neisseria gonorrhoeae (SONALI) Negative Negative Lipase 37 12-53 U/L Plasma/Serum Blood Alcohol < 3.0 <10 mg/dL HIV (1&2) Antibody Negative Negative Assessment/Plan Problem List: (1) Testicle lump (2) AOM (acute otitis media) (3) Acute abdominal pain (4) Hypertensive urgency Plan DDX: lipoma or scrotal fat herniation, inguinal hernia, testicular or paratesticular mass tumor markers AFP, beta HCG, LDH, does not need to stay for results. cleared from urology standpoint outpt follow up Plan discussed with: Patient BETO BROWNJESSENIA GU Aug 23, 2024 14:35
--- NOTE | 2024-08-23 15:50 | DVHINCON2 ---
Date of service: Aug 23, 2024 Referring Physician Tricia Reason for Consultation Abdominal pain History of Present Illness The patient is a 34-year-old male with no significant past medical history, history of marijuana use, history of GERD for which he takes [id number] medication, admitted with abdominal pain mostly in the epigastric region and right upper quadrant. Patient states that it is pain and not burning. Patient has been having acid reflux. Patient denies any prior history of admission for similar findings were workup for similar issues. She has had intermittent acid reflux for quite some time. He denies any diarrhea or constipation. Patient has had fever since admission is noted to have leukocytosis. CT scan findings show no significant abdominal or pelvic abnormalities, patient does have a possible hydrocele or testicular lump and is being worked up for this. Patient has not had any hematemesis. Patient was placed on IV antibiotics. Patient denies significant caffeine intake or alcohol abuse, he denies eating spicy food or greasy food. Past Medical History As per HPI Past Surgical History Denies Family History: Patient reports no known family medical history. Family History Denies GI family history Social History Marijuana use, no tobacco or alcohol use Allergies: Coded Allergies: NO KNOWN ALLERGIES (Unverified , 12/16/14) Home Meds Takes [id number] medications for acid Review of Systems Review of systems negative other than HPI Vital Signs Vital Signs Date Time Temp Pulse Resp B/P (MAP) Pulse Ox O2 Delivery O2 Flow Rate FiO2 08/23/24 13:00 98.4 94 16 117/76 (90) 100 98.4 08/23/24 07:48 Room Air* 0 21 21 Physical Exam General: Alert and oriented obese male lying in bed HEENT: Normocephalic atraumatic, EOMI PERRLA O/P clear Heart: Regular rate and rhythm Abdomen: Soft mild right upper quadrant tenderness to palpation no guarding or rebound tenderness Extremity: No clubbing cyanosis or edema Labs/Diagnostic Data Labs Test 08/23/24 15:10 08/22/24 03:21 08/21/24 12:30 08/21/24 09:14 Range/Units White Blood Count 13.4 #H 4.4-10.8 10^3/uL Red Blood Count 5.27 4.5-5.90 10^6/uL Hemoglobin 15.5 13.5-17.5 g/dL Hematocrit 46.4 41.0-53.0 % Mean Corpuscular Volume 88.1 80.0-100.0 fL Mean Corpuscular Hemoglobin 29.4 28.0-32.0 pg Mean Corpuscular Hemoglobin Concent 33.4 32.0-36.0 g/dL Red Cell Distribution Width 12.8 11.8-14.3 % Platelet Count 275 140-450 10^3/uL Mean Platelet Volume 8.2 6.9-10.8 fL Neutrophils (%) (Auto) 72.7 37.0-80.0 % Lymphocytes (%) (Auto) 16.1 10.0-50.0 % Monocytes (%) (Auto) 10.4 0.0-12.0 % Eosinophils (%) (Auto) 0.4 0.0-7.0 % Basophils (%) (Auto) 0.4 0.0-2.0 % Neutrophils # (Auto) 9.8 H 1.6-8.6 10 ^3/uL Lymphocytes # (Auto) 2.2 0.4-5.4 10 ^3/uL Monocytes # (Auto) 1.4 H 0-1.3 10 ^3/uL Eosinophils # (Auto) 0.1 0-0.8 10 ^3/uL Basophils # (Auto) 0.1 0-0.2 10 ^3/uL Nucleated Red Blood Cells 0.1 % Sodium Level 137 136-145 mmol/L Potassium Level 3.7 3.5-5.1 mmol/L Chloride Level 103 98-107 mmol/L Carbon Dioxide Level 23 20-31 mmol/L Anion Gap 11 5-15 Blood Urea Nitrogen 12 9-23 mg/dL Creatinine 1.08 0.700-1.30 mg/dL Glomerular Filtration Rate Calc 92 >90 mL/min BUN/Creatinine Ratio 11.1 10.0-20.0 Serum Glucose 120 H 74-106 mg/dL Calcium Level 9.2 8.7-10.4 mg/dL Total Bilirubin 1.1 H 0.2-1.0 mg/dL Aspartate Amino Transferase (AST) 20 13-40 U/L Alanine Aminotransferase (ALT) 37 7-40 U/L Alkaline Phosphatase 79 46-116 U/L Total Protein 7.1 5.7-8.2 g/dL Albumin 4.5 3.2-4.8 g/dL Urine Color Yellow Yellow Urine Clarity Turbid H Clear Urine pH 7.0 5.0-9.0 Urine Specific [place] 1.031 1.001-1.035 Urine Protein Trace H Negative Urine Ketones Trace Negative Urine Blood Negative Negative /uL Urine Nitrite Negative Negative Urine Bilirubin Negative Negative Urine Urobilinogen Normal Negative mg/dL Urine Leukocyte Esterase Negative Negative /uL Urine RBC 8 0 - 3 /hpf Urine Microscopic WBC < 1 0-3 /HPF Urine Squamous Epithelial Cells Few <5 /hpf Urine Amorphous Crystals Few None Seen /hpf Urine Bacteria None seen None Seen /hpf Urine Mucus Few None Seen Urine Glucose Normal Normal mg/dL Urine Opiates Screen Pos NEGATIVE Urine Fentanyl Screen Neg NEGATIVE Urine Barbiturates Screen Neg NEGATIVE Urine Phencyclidine Screen Neg NEGATIVE Urine Amphetamines Screen Neg NEGATIVE Urine Benzodiazepines Screen Neg NEGATIVE Urine Cocaine Screen Neg NEGATIVE Urine Cannabinoids Screen Pos NEGATIVE Chlamydia trachomatis (SONALI) Negative Negative Neisseria gonorrhoeae (SONALI) Negative Negative Lipase 37 12-53 U/L Plasma/Serum Blood Alcohol < 3.0 <10 mg/dL HIV (1&2) Antibody Negative Negative Assessment 1. Abdominal pain 2. GERD 3. Leukocytosis Findings may be due to gastroenteritis versus acalculous cholecystitis versus other Problems(with codes): (1) Acute abdominal pain (2) Hypertensive urgency (3) Testicle lump Plan/Recommendation 1. Hypertension control 2. Continue antibiotics 3. Diet as tolerated 4. Anti-reflux precautions, elevate head of bed, proton pump inhibitor daily, avoid spicy food and greasy 5. Consider EGD if symptoms persist or worsen Plan discussed with: Patient, Spouse LANI ALTMAN MD Aug 23, 2024 15:50
[2024-08-23 16:00] LABS: Beta HCG, Quantitative 0.3 mIU/mL (0-2)
[2024-08-23 16:30] VITALS: BP 109/67; PULSE 76; RESP 18; TEMP 97.8; O2SAT 94
--- NOTE | 2024-08-23 19:11 | DVHPN2 ---
Subjective The patient is seen and examined at bedside. Still complaint of abdominal pain and nausea Reviewed: Care Plan, H&P, Labs, Medications, Previous Orders, Radiology Changes from previous H/P or p: No Changes Eyes: No Pain, No Vision change, No Conjunctivae inflammation, No Eyelid inflammation, No Other, No Redness ENT: No Ear pain, No Ear discharge, No Nose pain, No Nose discharge, No Nose congestion, No Mouth pain, No Mouth swelling, No Throat pain, No Throat swelling, No Other Cardiovascular: No Chest Pain, No Palpitations, No Orthopnea, No Paroxysmal Noc. Dyspnea, No Edema, No Lt Headedness, No Other Respiratory: No Cough, No Dry, No Shortness of breath, No SOB with excertion, No Wheezing, No Hemoptysis, No Pleuritic Pain, No Sputum, No Other Gastrointestinal: Nausea, Vomiting, Abdominal Pain; No Diarrhea, No Constipation, No Melena, No Hematochezia, No Other Genitourinary: No Dysuria, No Frequency, No Incontinence, No Hematuria, No Retention, No Other Musculoskeletal: No other, No neck pain, No shoulder pain, No arm pain, No back pain, No hand pain, No leg pain, No foot pain Skin: No Rash, No Lesions, No Jaundice, No Bruising, No Other Objective Vitals Vital Signs Date Time Temp Pulse Resp B/P (MAP) Pulse Ox O2 Delivery O2 Flow Rate FiO2 08/23/24 16:30 97.8 76 18 109/67 (81) 94 97.8 08/23/24 07:48 Room Air* 0 21 21 Intake/Output Intake and Output 08/23/24 07:00 Intake Total 750 ml Balance 750 ml Intake IV Total 750 ml General Appearance: Alert, Oriented X3, Cooperative, No acute distress HEENT: Atraumatic, PERRLA, EOMI, Mucous membr. moist/pink Neck: Supple Lungs: Clear to auscultation, Normal air movement Cardiovascular: Regular rate, Normal S1, Normal S2, No murmurs, Gallops, Rubs Abdomen: Normal bowel sounds, Soft, No tenderness, No hepatospenomegaly Neuro: Cranial nerves 3-12 NL Psych/Mental Status: Mental status NL Medications Current Medications Medications Dose Ordered Sig/Graham Route Start Time Stop Time Status Last Admin Dose Admin Sodium Chloride 1,000 ml @ 100 mls/hr Q10H IV 08/21/24 09:45 08/23/24 11:45 100 MLS/HR Acetaminophen/ Hydrocodone Bitart 1 tab Q4HP PRN PO 08/21/24 09:45 08/22/24 12:56 1 TAB Ondansetron HCl 4 mg Q4HP PRN IV 08/21/24 09:45 Acetaminophen 650 mg Q6HP PRN PO 08/21/24 09:45 08/22/24 18:18 650 MG Morphine Sulfate 2 mg Q4HPRN PRN IV 08/21/24 09:45 08/23/24 08:16 2 MG Pantoprazole Sodium 40 mg DAILY IV 08/22/24 10:00 08/23/24 08:25 40 MG Ceftriaxone Sodium 50 ml @ 100 mls/hr DAILY@09 IV 08/22/24 09:00 08/23/24 08:25 100 MLS/HR Doxycycline Hyclate 100 ml @ 50 mls/hr Q12H IV 08/22/24 05:00 08/23/24 16:37 50 MLS/HR Laboratory Results Laboratory Tests 08/22/24 03:21 Urinalysis Test 08/21/24 12:30 Urine Color Yellow (Yellow) Urine Clarity Turbid (Clear) H Urine pH 7.0 (5.0-9.0) Urine Specific [place] 1.031 (1.001-1.035) Urine Protein Trace (Negative) H Urine Ketones Trace (Negative) Urine Blood Negative /uL (Negative) Urine Nitrite Negative (Negative) Urine Bilirubin Negative (Negative) Urine Urobilinogen Normal mg/dL (Negative) Urine Leukocyte Esterase Negative /uL (Negative) Urine RBC 8 /hpf (0 - 3) Urine Microscopic WBC < 1 /HPF (0-3) Urine Squamous Epithelial Cells Few /hpf (<5) Urine Amorphous Crystals Few /hpf (None Seen) Urine Bacteria None seen /hpf (None Seen) Urine Mucus Few (None Seen) Urine Glucose Normal mg/dL (Normal) Labs and/or images reviewed: Labs reviewed by me Assessment/Plan Assessment/Plan Intractable abdominal pain with nausea and vomiting Small amount of fluid in the left inguinal canal r/o hydrocele Palpable abnormality in the soft tissues of the right testicle measuring 3.7 cm. Substance abuse Obesity Continuing current management. Continuing with Protonix. Continuing with pain medication. Continuing with Zofran. Advised to stop using drugs more than 15 minutes Waiting for GI specialist to see the patient Appreciate urology input Plan discussed with: Patient My Orders Orders - YOAN JONES MD Procedure Category Date Status Time * [facility] [employer] CONS 08/23/24 Transmitted 13:07 Date of Service: Aug 23, 2024 Billing Provider: YOAN JONES MD Common Visit Codes: [id number] INP/OBS CARE(HIGH) YOAN JONES MD Aug 23, 2024 19:11
[2024-08-23 21:00] VITALS: BP 132/71; PULSE 107; RESP 18; TEMP 99.5; O2SAT 96
[2024-08-23] MEDS: MAALOX PLUS or MAALOX 30 ML PO ONE (23:56)
[2024-08-24] VITALS (7 sets, daily range): BP systolic 113–154; BP diastolic 55–102; PULSE 71–88; RESP 18–20; TEMP 98–98.8; O2SAT 95–98
[2024-08-24] MEDS: DOCUSATE SOD 100 MG CAP PO ONE (16:07)
[2024-08-24] MEDS: FAMOTIDINE (10MG/ML) 2ML VL IV ONE (16:07)
[2024-08-24] MEDS: POLYETHYLENE GLYCOL 17 GM PWDR PO ONE (16:07)
[2024-08-24 16:12] LABS: RPR Non Reactive
--- NOTE | 2024-08-24 17:25 | DVHPN2 ---
Subjective having pain in epigastric area Reviewed: Care Plan, H&P, Labs, Medications, Previous Orders, Radiology Changes from previous H/P or p: No Changes Eyes: No Pain, No Vision change, No Conjunctivae inflammation, No Eyelid inflammation, No Other, No Redness ENT: No Ear pain, No Ear discharge, No Nose pain, No Nose discharge, No Nose congestion, No Mouth pain, No Mouth swelling, No Throat pain, No Throat swelling, No Other Cardiovascular: No Chest Pain, No Palpitations, No Orthopnea, No Paroxysmal Noc. Dyspnea, No Edema, No Lt Headedness, No Other Respiratory: No Cough, No Dry, No Shortness of breath, No SOB with excertion, No Wheezing, No Hemoptysis, No Pleuritic Pain, No Sputum, No Other Gastrointestinal: Nausea, Vomiting, Abdominal Pain; No Diarrhea, No Constipation, No Melena, No Hematochezia, No Other Genitourinary: No Dysuria, No Frequency, No Incontinence, No Hematuria, No Retention, No Other Musculoskeletal: No other, No neck pain, No shoulder pain, No arm pain, No back pain, No hand pain, No leg pain, No foot pain Skin: No Rash, No Lesions, No Jaundice, No Bruising, No Other Objective Vitals Vital Signs Date Time Temp Pulse Resp B/P (MAP) Pulse Ox O2 Delivery O2 Flow Rate FiO2 08/24/24 17:05 98.2 88 18 148/92 (110) 98 98.2 08/24/24 08:15 Room Air* 0 21 21 Intake/Output Intake and Output 08/24/24 07:00 Intake Total 1350 ml Balance 1350 ml Intake IV Total 1350 ml General Appearance: Alert, Oriented X3, Cooperative, No acute distress HEENT: Atraumatic, PERRLA, EOMI, Mucous membr. moist/pink Neck: Supple Lungs: Clear to auscultation, Normal air movement Cardiovascular: Regular rate, Normal S1, Normal S2, No murmurs, Gallops, Rubs Abdomen: Normal bowel sounds, Soft, No tenderness, No hepatospenomegaly Genitourinary: Tenderness (Scrotum) Neuro: Cranial nerves 3-12 NL Psych/Mental Status: Mental status NL Medications Current Medications Medications Dose Ordered Sig/Graham Route Start Time Stop Time Status Last Admin Dose Admin Sodium Chloride 1,000 ml @ 100 mls/hr Q10H IV 08/21/24 09:45 08/24/24 04:58 100 MLS/HR Acetaminophen/ Hydrocodone Bitart 1 tab Q4HP PRN PO 08/21/24 09:45 08/24/24 06:52 1 TAB Ondansetron HCl 4 mg Q4HP PRN IV 08/21/24 09:45 Acetaminophen 650 mg Q6HP PRN PO 08/21/24 09:45 08/22/24 18:18 650 MG Morphine Sulfate 2 mg Q4HPRN PRN IV 08/21/24 09:45 08/24/24 11:27 2 MG Pantoprazole Sodium 40 mg BID IV 08/24/24 22:00 Future Hold Famotidine 20 mg Q12HR IV 08/24/24 22:00 Docusate Sodium 100 mg BID PO 08/24/24 22:00 Polyethylene Glycol 17 gm DAILY PO 08/25/24 10:00 Laboratory Results Laboratory Tests 08/22/24 03:21 Urinalysis Test 08/21/24 12:30 Urine Color Yellow (Yellow) Urine Clarity Turbid (Clear) H Urine pH 7.0 (5.0-9.0) Urine Specific [place] 1.031 (1.001-1.035) Urine Protein Trace (Negative) H Urine Ketones Trace (Negative) Urine Blood Negative /uL (Negative) Urine Nitrite Negative (Negative) Urine Bilirubin Negative (Negative) Urine Urobilinogen Normal mg/dL (Negative) Urine Leukocyte Esterase Negative /uL (Negative) Urine RBC 8 /hpf (0 - 3) Urine Microscopic WBC < 1 /HPF (0-3) Urine Squamous Epithelial Cells Few /hpf (<5) Urine Amorphous Crystals Few /hpf (None Seen) Urine Bacteria None seen /hpf (None Seen) Urine Mucus Few (None Seen) Urine Glucose Normal mg/dL (Normal) Assessment/Plan Assessment/Plan Intractable abdominal pain with nausea and vomiting Acute gastritis Small amount of fluid in the left inguinal canal r/o hydrocele Palpable abnormality in the soft tissues of the right testicle measuring 3.7 cm. Substance abuse Obesity US testicle wnl started IV pantoprazole BID, IV famotidine and stool softeners GI consulted to evaluate possible need for EGD Plan discussed with: Patient My Orders Orders - MARGA BARNETT MD Procedure Category Date Status Time Pantoprazole PHA 08/24/24 In Process (Protonix) 22:00 Famotidine Injection PHA 08/24/24 In Process (Pepcid Injection) 22:00 Docusate Sodium PHA 08/24/24 In Process Capsule (Colace 22:00 Polyethylene Glycol PHA 08/25/24 In Process 17g Powder (Miralax 10:00 Date of Service: Aug 24, 2024 Billing Provider: MARGA BARNETT MD Common Visit Codes: [id number] INP/OBS CARE(HIGH) MARGA BARNETT MD Aug 24, 2024 17:25
--- NOTE | 2024-08-24 18:33 | DVHPN2 ---
Progress Note Date Seen: Aug 24, 2024 Resident Creating Document: PATRICIA DENT RESIDENT Medical Necessity Reason Pt with a Central, PICC or Fol: No Subjective Review of Systems pt continue to have epigastric pain. no bowel movement in last 3 days no nausea vomitig no appetite Patient reports: No new complaints Changes from previous H/P or p: No Changes Review of Systems: HEENT:Normal, CVS:Normal, RESPIRATORY:Normal, GI:Normal, :Normal, NEURO:Normal Objective vital signs Vital Sign Date Time Temp Pulse Resp B/P (MAP) Pulse Ox O2 Delivery O2 Flow Rate FiO2 08/24/24 17:05 98.2 88 18 148/92 (110) 98 98.2 08/24/24 08:15 Room Air* 0 21 21 Total Intake and Output 08/23/24 08/23/24 08/24/24 15:00 23:00 07:00 Intake Total 1150 ml 100 ml 100 ml Balance 1150 ml 100 ml 100 ml medications Current Medications Medications Dose Ordered Sig/Graham Route Start Time Stop Time Status Last Admin Dose Admin Sodium Chloride 1,000 ml @ 100 mls/hr Q10H IV 08/21/24 09:45 08/24/24 04:58 100 MLS/HR Acetaminophen/ Hydrocodone Bitart 1 tab Q4HP PRN PO 08/21/24 09:45 08/24/24 06:52 1 TAB Ondansetron HCl 4 mg Q4HP PRN IV 08/21/24 09:45 Acetaminophen 650 mg Q6HP PRN PO 08/21/24 09:45 08/22/24 18:18 650 MG Morphine Sulfate 2 mg Q4HPRN PRN IV 08/21/24 09:45 08/24/24 11:27 2 MG Pantoprazole Sodium 40 mg BID IV 08/24/24 22:00 Future Hold Famotidine 20 mg Q12HR IV 08/24/24 22:00 Docusate Sodium 100 mg BID PO 08/24/24 22:00 Polyethylene Glycol 17 gm DAILY PO 08/25/24 10:00 laboratory and microbiology Laboratory Tests 08/22/24 03:21 Test 08/22/24 03:21 Range/Units Serum Glucose 120 H 74-106 mg/dL Problem List/Assessment/Plan Problem List/Assessment/Plan Abdominal pain GERD Leukocytosis Dyslipidemia ? gastroenteritis Plan/Recommendation Dr Richards Given persist abdominal pain, no symptom control with PPI, plan for EGD tommorrow. Keep NPO Obtain consent Continue antibiotics as per primary team. Diet as tolerated Anti-reflux precautions, elevate head of bed, proton pump inhibitor daily, avoid spicy food and greasy Plan discussed with: Patient, Spouse (RN) PATRICIA DENT RESIDENT Aug 24, 2024 18:33
[2024-08-24] MEDS ORDERED: PANTOPRAZOLE 40 MG/10 ML VIAL INJ IV SCH (22:00)
[2024-08-24] MEDS: DOCUSATE SOD 100 MG CAP PO SCH (22:00)
[2024-08-24] MEDS: FAMOTIDINE (10MG/ML) 2ML VL IV SCH (22:02)
[2024-08-24 23:50] LABS: INR 1.02 (0.9-1.15); Partial Thromboplastin Time 28.2 SEC (24.5-34.5); Prothrombin Time 10.8 sec (9.3-11.8)
[2024-08-25] VITALS (7 sets, daily range): BP systolic 102–143; BP diastolic 56–95; PULSE 65–74; RESP 14–20; TEMP 97.1–98.6; O2SAT 96–99
--- NOTE | 2024-08-25 07:35 | DVH ---
EXAM: US Abdomen Limited, Gallbladder CLINICAL INDICATION: ruq pain increase Total bili 1.2 TECHNIQUE: Real-time ultrasound of the right upper quadrant with image documentation. COMPARISON: None FINDINGS: LIVER: Hepatomegaly with fatty infiltration. Liver measures up to 19.3 cm. Hepatopetal flow in ma in portal vein. GALLBLADDER: Cholelithiasis. Negative Thompson's sign was reported by the set off press operator. Apparent wal l thickening of the gallbladder measuring up to 13.3 mm. COMMON BILE DUCT: CBD not visualized. PANCREAS: Unremarkable as visualized. RIGHT KIDNEY: Right kidney measures up to 12.2 cm. OTHER FINDINGS: . IMPRESSION: 1. Hepatomegaly with fatty infiltration. 2. Cholelithiasis. 3. Cholelithiasis with findings equivocal for acute cholecystitis. If indicated, further evaluation with HIDA scan may be beneficial.
[2024-08-25] MEDS: POLYETHYLENE GLYCOL 17 GM PWDR PO SCH (10:00)
--- NOTE | 2024-08-25 10:10 | DVH ---
EXAM: XY CHEST XRAY 1 VIEW Indication: Pain Technique: Single frontal view of the chest was obtained Comparison: None FINDINGS: Lines and Tubes: None Lungs: No focal consolidation. Pleura: No effusion. No pneumothorax. Cardiomediastinal contours: Cardiomegaly. Bones: No acute osseous abnormality. IMPRESSION: Cardiomegaly. No acute cardiopulmonary disease.
[2024-08-25] MEDS ORDERED: SODIUM CHLORIDE LOCK 10 ML ONE (14:45)
[2024-08-25] MEDS: LIDOCAINE VISCOUS 2% 15ML UD ONE (16:31)
[2024-08-25] MEDS: MIDAZOLAM HCL 5 MG/ML-1ML VIAL ONE (16:33)
[2024-08-25] MEDS: diphenhdrAMINE HCL 50 MG/1 ML VL ONE (16:33)
[2024-08-25] MEDS: fentaNYL CITRATE 100 MCG/2 ML VL ONE (16:33)
--- NOTE | 2024-08-25 16:48 | DVHOP2 ---
Operative Report DATE OF OPERATION: 08/25/24 PROCEDURE: Upper Endoscopy with biopsy PREOPERATIVE INDICATION: The patient is a 34 -year-old male undergoing endoscopy for epigastric pain POSTOPERATIVE DIAGNOSES: 1. 2 cm sliding-type hiatal hernia with irregular squamocolumnar junction grade A to B erosive esophagitis 2. Mild to moderate gastroduodenitis with superficial erosions in the antrum and duodenal bulb PROCEDURE PERFORMED BY: Rosemary Richards GI NURSE: Luis Enrique SCOPE: Olympus videoendoscope. ASA CLASS: 2. PREOPERATIVE MEDICATIONS: Versed 3 mg, Fentanyl 75 mcg, Benadryl 50 mg I administered moderate sedation throughout this _8_ minutes procedure. An independent trained observer pushed medications at my direction, and monitored the patient's level of consciousness and physiological status throughout. PROCEDURE IN DETAIL: After obtaining an informed consent, the patient was placed on left lateral decubitus position. The patient was then sedated with the above medications. A bite block was placed between his teeth. The endoscope was then passed through the oropharynx, into the esophagus, and through the stomach and pylorus up to the second and third part of the duodenum. The endoscope was then withdrawn. The 2nd and 3rd part of the duodenal were normal. Duodenal bulb and postbulbar area showed moderate duodenitis with hyperemia erythema superficial erosions Duodenal biopsies were obtained. The pre-pyloric area and antrum also showed mild gastritis with superficial erosions. Gastric biopsies were obtained. On retroflexion the fundus cardia and angularis were normal. The endoscope was then withdrawn into the distal esophagus Patient had a 2 cm sliding-type hiatal hernia with grade A to B linear erosive esophagitis and GE junction biopsies were obtained. The remaining distal and proximal esophagus and oropharynx were unremarkable The patient tolerated the procedure well without difficulty. COMPLICATIONS : None SPECIMENS: Duodenal biopsies Gastric biopsies GE junction biopsies DISPOSITION: Transfer back to the floor Stable PLAN: 1. Await for biopsy result 2. Will place pt on Protonix 40 mg bid 3. Carafate suspension 1 g p.o. twice a day 4. Resume soft mechanical diet advance as tolerated 5. Outpatient follow up with me in 2-4 weeks to review results and discuss further management 6. Avoid aspirin NSAIDs smoking alcohol ROSEMARY RICHARDS MD Aug 25, 2024 16:48
[2024-08-25] MEDS ORDERED: SUCR1SUS26 PO (17:29)
[2024-08-25] MEDS ORDERED: PANT40TA2 PO (17:29)
--- NOTE | 2024-08-25 17:32 | DVHDS2 ---
Discharge Summary Date of Admission Aug 21, 2024 at 09:43 Date of Discharge: Aug 25, 2024 Admitting Diagnosis Erosive Esophagitis Labs/Diagnostic Data: Laboratory Results Test 08/24/24 23:08 08/23/24 15:10 08/22/24 03:21 08/21/24 12:30 Prothrombin Time 10.8 sec (9.3-11.8) Prothrombin Time INR 1.02 (0.9-1.15) Activated Partial Thromboplast Time 28.2 SEC (24.5-34.5) Lactate Dehydrogenase 209 U/L (120-246) Tumor Marker Alpha Fetoprotein <1.8 ng/mL (0.0-6.9) Beta HCG, Quantitative 0.3 mIU/mL (0-2) White Blood Count 13.4 10^3/uL (4.4-10.8) Red Blood Count 5.27 10^6/uL (4.5-5.90) Hemoglobin 15.5 g/dL (13.5-17.5) Hematocrit 46.4 % (41.0-53.0) Mean Corpuscular Volume 88.1 fL (80.0-100.0) Mean Corpuscular Hemoglobin 29.4 pg (28.0-32.0) Mean Corpuscular Hemoglobin Concent 33.4 g/dL (32.0-36.0) Red Cell Distribution Width 12.8 % (11.8-14.3) Platelet Count 275 10^3/uL (140-450) Mean Platelet Volume 8.2 fL (6.9-10.8) Neutrophils (%) (Auto) 72.7 % (37.0-80.0) Lymphocytes (%) (Auto) 16.1 % (10.0-50.0) Monocytes (%) (Auto) 10.4 % (0.0-12.0) Eosinophils (%) (Auto) 0.4 % (0.0-7.0) Basophils (%) (Auto) 0.4 % (0.0-2.0) Neutrophils # (Auto) 9.8 10 ^3/uL (1.6-8.6) Lymphocytes # (Auto) 2.2 10 ^3/uL (0.4-5.4) Monocytes # (Auto) 1.4 10 ^3/uL (0-1.3) Eosinophils # (Auto) 0.1 10 ^3/uL (0-0.8) Basophils # (Auto) 0.1 10 ^3/uL (0-0.2) Nucleated Red Blood Cells 0.1 % Sodium Level 137 mmol/L (136-145) Potassium Level 3.7 mmol/L (3.5-5.1) Chloride Level 103 mmol/L (98-107) Carbon Dioxide Level 23 mmol/L (20-31) Anion Gap 11 (5-15) Blood Urea Nitrogen 12 mg/dL (9-23) Creatinine 1.08 mg/dL (0.700-1.30) Glomerular Filtration Rate Calc 92 mL/min (>90) BUN/Creatinine Ratio 11.1 (10.0-20.0) Serum Glucose 120 mg/dL (74-106) Calcium Level 9.2 mg/dL (8.7-10.4) Total Bilirubin 1.1 mg/dL (0.2-1.0) Aspartate Amino Transferase (AST) 20 U/L (13-40) Alanine Aminotransferase (ALT) 37 U/L (7-40) Alkaline Phosphatase 79 U/L (46-116) Total Protein 7.1 g/dL (5.7-8.2) Albumin 4.5 g/dL (3.2-4.8) Urine Color Yellow (Yellow) Urine Clarity Turbid (Clear) Urine pH 7.0 (5.0-9.0) Urine Specific [place] 1.031 (1.001-1.035) Urine Protein Trace (Negative) Urine Ketones Trace (Negative) Urine Blood Negative /uL (Negative) Urine Nitrite Negative (Negative) Urine Bilirubin Negative (Negative) Urine Urobilinogen Normal mg/dL (Negative) Urine Leukocyte Esterase Negative /uL (Negative) Urine RBC 8 /hpf (0 - 3) Urine Microscopic WBC < 1 /HPF (0-3) Urine Squamous Epithelial Cells Few /hpf (<5) Urine Amorphous Crystals Few /hpf (None Seen) Urine Bacteria None seen /hpf (None Seen) Urine Mucus Few (None Seen) Urine Glucose Normal mg/dL (Normal) Urine Opiates Screen Pos (NEGATIVE) Urine Fentanyl Screen Neg (NEGATIVE) Urine Barbiturates Screen Neg (NEGATIVE) Urine Phencyclidine Screen Neg (NEGATIVE) Urine Amphetamines Screen Neg (NEGATIVE) Urine Benzodiazepines Screen Neg (NEGATIVE) Urine Cocaine Screen Neg (NEGATIVE) Urine Cannabinoids Screen Pos (NEGATIVE) Chlamydia trachomatis (SONALI) Negative (Negative) Neisseria gonorrhoeae (SONALI) Negative (Negative) Test 08/21/24 09:14 Lipase 37 U/L (12-53) Plasma/Serum Blood Alcohol < 3.0 mg/dL (<10) Rapid Plasma Reagin Non reactive HIV (1&2) Antibody Negative (Negative) Other Laboratory Tests 08/22/24 03:21 Brief Hx & Hospital Course: The patient is a 34-year-old male with no significant past medical history, history of marijuana use, history of GERD for which he takes [id number] medication, admitted with abdominal pain mostly in the epigastric region and right upper quadrant. Patient states that it is pain and not burning. Patient has been having acid reflux. Patient denies any prior history of admission for similar findings were workup for similar issues. She has had intermittent acid reflux for quite some time. He denies any diarrhea or constipation. Patient has had fever since admission is noted to have leukocytosis. CT scan findings show no significant abdominal or pelvic abnormalities, patient does have a possible hydrocele or testicular lump and is being worked up for this. Patient has not had any hematemesis. Patient was placed on IV antibiotics. Patient denies significant caffeine intake or alcohol abuse, he denies eating spicy food or greasy food. Patient underwent EGD, see report below. Continue protonix BID and Carafate. Followup in [facility]. Operations or Procedures PROCEDURE: Upper Endoscopy with biopsy PREOPERATIVE INDICATION: The patient is a 34 -year-old male undergoing endoscopy for epigastric pain POSTOPERATIVE DIAGNOSES: 1. 2 cm sliding-type hiatal hernia with irregular squamocolumnar junction grade A to B erosive esophagitis 2. Mild to moderate gastroduodenitis with superficial erosions in the antrum and duodenal bulb PROCEDURE PERFORMED BY: Shereen Richards GI NURSE: Luis Enrique SCOPE: Olympus videoendoscope. ASA CLASS: 2. PREOPERATIVE MEDICATIONS: Versed 3 mg, Fentanyl 75 mcg, Benadryl 50 mg I administered moderate sedation throughout this _8_ minutes procedure. An independent trained observer pushed medications at my direction, and monitored the patient's level of consciousness and physiological status throughout. PROCEDURE IN DETAIL: After obtaining an informed consent, the patient was placed on left lateral decubitus position. The patient was then sedated with the above medications. A bite block was placed between his teeth. The endoscope was then passed through the oropharynx, into the esophagus, and through the stomach and pylorus up to the second and third part of the duodenum. The endoscope was then withdrawn. The 2nd and 3rd part of the duodenal were normal. Duodenal bulb and postbulbar area showed moderate duodenitis with hyperemia erythema superficial erosions Duodenal biopsies were obtained. The pre-pyloric area and antrum also showed mild gastritis with superficial erosions. Gastric biopsies were obtained. On retroflexion the fundus cardia and angularis were normal. The endoscope was then withdrawn into the distal esophagus Patient had a 2 cm sliding-type hiatal hernia with grade A to B linear erosive esophagitis and GE junction biopsies were obtained. The remaining distal and proximal esophagus and oropharynx were unremarkable The patient tolerated the procedure well without difficulty. COMPLICATIONS : None SPECIMENS: Duodenal biopsies Gastric biopsies GE junction biopsies DISPOSITION: Transfer back to the floor Stable PLAN: 1. Await for biopsy result 2. Will place pt on Protonix 40 mg bid 3. Carafate suspension 1 g p.o. twice a day 4. Resume soft mechanical diet advance as tolerated 5. Outpatient follow up with me in 2-4 weeks to review results and discuss further management 6. Avoid aspirin NSAIDs smoking alcohol Condition at Discharge: Poor Final Diagnosis/Problems List Erosive Esophagitis Intractable abdominal pain with nausea and vomiting Acute gastritis Small amount of fluid in the left inguinal canal r/o hydrocele Palpable abnormality in the soft tissues of the right testicle measuring 3.7 cm. Substance abuse Obesity Discharge Disposition: Home Discharge Instruct/Medications Diet: See Comment Diet comment: Soft Activity: Light activity Follow Up/Referral: [facility] Medications: Protonix Carafate Discharge Statement: "Patient was advised to return to the ER or call 911 if any headaches, dizziness, shortness of breath, chest pain, abdominal pain, bleeding, fevers, or worsening of medical condition. Patient was counseled about treatment plan, medications, possible side effects, patientverbalized understanding. All questions were answered to the best of my ability. This discharge took greater then 30 minutes in planning, reviewing documentation, counseling the patient, and discussing with other team members." ASSESSMENT ASSESSMENT Assessment Date of Service: Aug 25, 2024 Billing Provider: DERICK LOUIE MD Common Visit Codes: 35274-NDD/OBS DISCH DAY >30min DERICK LOUIE MD Aug 25, 2024 17:32
[2024-08-25] MEDS: SUCRALFATE 1 GM/10 ML ORAL SUSP PO SCH (18:10)
== END 2024-08-25 20:30 | disposition home or self-care (01) | DRG 243 ==
LOC: ER 08:11 → OVERFLOW 09:43 → EEVIPCON 09:43 → WEST WING 08-22 17:39
PROVIDERS: ADMIT Internal Medicine; ATTEND Internal Medicine
PROC: 0DB68ZX Excision of Stomach, Via Natural or Artificial Opening Endoscopic, Diagnostic (ICD-10-PCS; 2024-08-25)
PROC: 0DB48ZX Excision of Esophagogastric Junction, Via Natural or Artificial Opening Endoscopic, Diagnostic (ICD-10-PCS; 2024-08-25)
PROC: 0DB98ZX Excision of Duodenum, Via Natural or Artificial Opening Endoscopic, Diagnostic (ICD-10-PCS; principal; 2024-08-25 16:27)
DX: K22.10 Ulcer of esophagus without bleeding (principal); R65.10 Systemic inflammatory response syndrome (SIRS) of non-infectious origin without acute organ dysfunction; K29.00 Acute gastritis without bleeding; D72.829 Elevated white blood cell count, unspecified; A09 Infectious gastroenteritis and colitis, unspecified; K21.9 Gastro-esophageal reflux disease without esophagitis; I16.0 Hypertensive urgency; N43.3 Hydrocele, unspecified; E66.9 Obesity, unspecified; F19.10 Other psychoactive substance abuse, uncomplicated; K44.9 Diaphragmatic hernia without obstruction or gangrene; H66.90 Otitis media, unspecified, unspecified ear; Z68.39 Body mass index [BMI] 39.0-39.9, adult
CPT/HCPCS: 36415; 43239; 71045; 74176; 76705; 76870; 80048; 80053; 80307; 80320; 81001; 82105; 82247; 83615; 83690; 84702; 85025; 85610; 85730; 86592; 86703; 86850; 86900; 86901; 96361; 96365; 96367; 96375; 99291; G0378; J1885; J2250; J2405; J2470; J3490